=== PATIENT | female | born 1990 | race Hispanic/Latino ===

== ENCOUNTER 2018-08-24 19:02 | Emergency (ER) | payer OTHER ==
[2018-08-24 20:06] VITALS: BP 120/89; PULSE 76; RESP 16; TEMP 98; O2SAT 100
[2018-08-24] MEDS ORDERED: Tdap Vaccine 0.5 ml Vial (10-64 yrs) IM ONE ×2 (21:00→22:08)
--- NOTE | 2018-08-24 21:10 | ED PDOC ---
Lower Extremity Pain/Injury Time Seen by Provider: 08/24/18 21:00 Chief Complaint (Nursing): Abnormal Skin Integrity Chief Complaint (Provider): Abnormal Skin Integrity History Per: Patient History/Exam Limitations: no limitations Onset/Duration Of Symptoms: Sudden Onset Current Symptoms Are (Timing): Still Present Additional Complaint(s): 28 y/o female with no significant PMH who presents to the ED c/o bilateral leg lacerations and bruising [place]. Pt was carrying a large canvas when she [place] and [place], bruising and sustaining laceration to both shins. Lacerations were sustained through long pants. Denies numbness, paresthesias, knee pain, ankle pain, lacerations elsewhere. Past Medical History Reviewed: Historical Data, Nursing Documentation, Vital Signs Vital Signs: Last Vital Signs Temp 98.0 F 08/24/18 20:01 Pulse 76 08/24/18 20:01 Resp 16 08/24/18 20:01 BP 120/89 08/24/18 20:01 Pulse Ox 100 08/24/18 20:01 - Family History Family History: States: No Known Family Hx - Allergies Allergies/Adverse Reactions: Allergies Allergy/AdvReac Type Severity Reaction Status Date / Time cobalt Allergy RASH Verified 08/24/18 20:01 nickel Allergy RASH Verified 08/24/18 20:01 Review of Systems ROS Statement: Except As Marked, All Systems Reviewed And Found Negative Constitutional: Negative for: Fever, Chills Eyes: Negative for: Vision Change Cardiovascular: Negative for: Chest Pain, Palpitations Respiratory: Negative for: Cough, Shortness of Breath Gastrointestinal: Negative for: Nausea, Vomiting, Abdominal Pain Musculoskeletal: Positive for: Leg Pain (bilateral shins). Negative for: Neck Pain, Shoulder Pain, Arm Pain, Back Pain, Hand Pain, Foot Pain Skin: Positive for: Bruising (bilateral shins). Negative for: Rash, Lesions Neurological: Negative for: Weakness, Numbness, Headache, Dizziness Physical Exam - Reviewed Nursing Documentation Reviewed: Yes Vital Signs Reviewed: Yes - Physical Exam Appears: Positive for: Well, Non-toxic, No Acute Distress Head Exam: Positive for: ATRAUMATIC, NORMAL INSPECTION, NORMOCEPHALIC Skin: Positive for: Normal Color, Warm. Negative for: Rash Eye Exam: Positive for: EOMI, Normal appearance, PERRL Neck: Positive for: Normal, Painless ROM Cardiovascular/Chest: Positive for: Regular Rate, Rhythm Respiratory: Positive for: CNT, Normal Breath Sounds Pulses-Dorsalis Pedis (L): 2+ Pulses-Dorsalis Pedis (R): 2+ Pulses-Radial (L): 2+ Pulses-Radial (R): 2+ Gastrointestinal/Abdominal: Positive for: Normal Exam, Soft Back: Positive for: Normal Inspection Extremity: Positive for: Normal ROM, Tenderness (bilateral shins), Capillary Refill (<2s), Other (1cm horizontal lacerations with clean edges midway up bilateral shins. No active bleeding. Right more shallow than left. ). Negative for: Deformity, Swelling Neurologic/Psych: Positive for: Alert, radar mechanic II-XII (intact), Oriented, Gait (steady). Negative for: Motor/Sensory Deficits - ECG O2 Sat by Pulse Oximetry: 100 (RA) Pulse Ox Interpretation: Normal Medical Decision Making Medical Decision Making: Time: 2099 Initial Plan: * XR tibia/fibula (SATYA) * Tdap * Wound repair XR: no FB or fracture Pt tolerated procedure well without complication. See procedure note. Wounds covered with bacitracin and adhesive bandages. Followup discussed with pt, who agrees and understands. Pt stable for discharge home. Impression: Laceration, bilateral anterior lower legs Plan: * wound care * ibuprofen/tylenol for pain * return in 7 days for suture removal * return for new or worsening symptoms Scribe Attestation: Documented by Maura Phillips, acting as a scribe for Alannah Mena PA-C. Provider Scribe Attestation: All medical record entries made by the Scribe were at my direction and personally dictated by me. I have reviewed the chart and agree that the record accurately reflects my personal performance of the history, physical exam, medical decision making, and the department course for this patient. I have also personally directed, reviewed, and agree with the discharge instructions and disposition. Procedures - Time-Out Type of Procedure: wound repair Site of Procedure: bilateral anterior lower legs over tibia Correct Patient (with visual ID + MR# on ID Band): Yes Correct Procedure: Yes PA/Tech: Alannah Mena - Laceration/Wound Repair Bilateral Wound Length (cm): 1 (two 1cm horizontal, linear lacerations with clean edges on bilateral legs over tibia, one on each leg; right more shallow than left.) Wound's Depth, Shape: superficial Wound Explored: clean Irrigated w/ Saline (ccs): 20 Betadine Prep?: Yes Anesthesia: 1% Lidocaine Volume Anesthetic (ccs): 2 Wound Repaired With: Sutures (simple interrupted) Number of Sutures: 4 (1 on right leg, 3 on left leg) Deep Layer Suture Size/Type: 4:0 (nylon) Wound Complexity: Simple Sterile Dressing Applied?: Yes Splint Applied?: No Disposition - Clinical Impression Clinical Impression: Laceration Counseled Patient/Family Regarding: Studies Performed, Diagnosis, Need For Followup - Disposition [facility]errals: [facility] [Outside] Disposition: Routine/Home Disposition Time: 21:30 Condition: IMPROVED Additional Instructions: RETURN FOR SUTURE REMOVAL IN 7 DAYS Keep wound clean and dry and covered No soaking Return to ED for new or worsening, signs of infection Forms: Sara Vogel (Kiswahili), [facility] ED School/Work Excuse
--- NOTE | 2018-08-25 09:01 | RAD ---
Date of service: 08/24/2018 PROCEDURE: Radiographs of the bilateral Tibiae and Fibulae. HISTORY: fall COMPARISON: None available. TECHNIQUE: Frontal and lateral views obtained. FINDINGS: BONES: RIGHT TIBIA: No fracture or destructive lesion. LEFT TIBIA: No fracture or destructive lesion. JOINT SPACES: RIGHT TIBIA: Normal. LEFT TIBIA: Normal. SOFT TISSUES: RIGHT TIBIA: Normal. LEFT TIBIA: Normal. OTHER FINDINGS: None. IMPRESSION: Unremarkable radiographs of the bilateral tibia and fibula.
== END 2018-08-24 22:15 | disposition home or self-care (01) ==
LOC: H.ER 19:02
DX: S81.812A Laceration without foreign body, left lower leg, initial encounter (principal); W19.XXXA Unspecified fall, initial encounter; Y92.89 Other specified places as the place of occurrence of the external cause